=== PATIENT | male | born 1940 | race Two or more races ===

== ENCOUNTER → 2016-09-22 | Outpatient (CLI) | payer OTHER, MEDICAID ==
[~2016-09-22] MED LIST: ASPI81TA13 PO; BACL10TA PO; CAPT25TA76 PO; CHOL50006 PO; CHOLCAP4 PO; LOSA50TA26 PO; MELO-86 PO; METF-312 PO; METF-314 PO; OMEP20CA5 PO; PRED10PA PO; SIMV-8 PO
== END | disposition home or self-care (01) ==
LOC: Rad HDHVI 14:37
PROVIDERS: ATTEND Internal Medicine Cardiovascular Disease
DX: I11.0 Hypertensive heart disease with heart failure (principal); I34.0 Nonrheumatic mitral (valve) insufficiency; I34.2 Nonrheumatic mitral (valve) stenosis; I35.0 Nonrheumatic aortic (valve) stenosis; E78.00 Pure hypercholesterolemia, unspecified
CPT/HCPCS: 93306

== ENCOUNTER → 2016-10-21 | Outpatient (CLI) | payer OTHER, MEDICAID ==
[2016-10-21 09:35] VITALS: BP 126/84
[2016-10-21 10:05] VITALS: BP 133/73
[2016-10-21 12:15] LABS: Basophils # (auto) 0 uL; Basophils % (auto) 0.6 % (0.0-2.0); Eosinophils # (auto) 0.2 uL; Eosinophils % (auto) 2.1 % (0.0-7.0); Hematocrit 42.5 % (41.0-53.0); Lymphocytes # (auto) 1.7 uL; Lymphocytes % (auto) 23.1 % (10.0-50.0); Mean Corpuscular Hemoglobin 30.4 pg (28.0-32.0); Mean Platelet Volume 9.1 fL (7.4-10.4); Monocytes # (auto) 0.4 uL; Monocytes % (auto) 6.2 % (0.0-12.0); Neutrophils # (auto) 4.9 uL; Platelet Count (auto) 321 10^3/uL (140-450); Red Cell Distribution Width 12.6 % (11.6-16.0); White Blood Cell 7.2 10^3/uL (4.4-10.8)
[2016-10-21 12:46] LABS: Partial Thromboplastin Time 30.1 sec (22.64-33.71); Prothrombin Time 12.3 sec (9.37-12.3)
[2016-10-21 13:29] LABS: INR 1.19 (0.9-1.15)
[2016-10-21 13:40] LABS: Calcium 8.6 mg/dL (8.5-10.1); Potassium 4.3 mmol/L (3.5-5.1)
== END | disposition home or self-care (01) ==
LOC: Rad HDHVI 09:22
PROVIDERS: ATTEND Internal Medicine Cardiovascular Disease
DX: I10 Essential (primary) hypertension (principal); D64.9 Anemia, unspecified; R79.1 Abnormal coagulation profile; Z01.812 Encounter for preprocedural laboratory examination
CPT/HCPCS: 36415; 71020; 80048; 85025; 85610; 85730; 93005; G0463

== ENCOUNTER 2016-10-23 12:15 | Inpatient (IN) | payer OTHER, MEDICAID ==
[~2016-10-23] VITALS: Ht 172.7 cm; Wt 90.1 kg
[~2016-10-23 12:15] MED LIST changes: +IODIXANOL 320MG/ML 100ML BTL IV ONE; +LIDOCAINE 2%HCL (LOCAL ANESTH.) INJ 20ML MDV ONE
[2016-10-23] MEDS ORDERED: VANCOMYCIN HCL 1000 MG VL ONE (12:48)
[2016-10-23] MEDS ORDERED: VANCOMYCIN 1GM/250ML D5W 250 ML IV ONE (12:49)
[2016-10-23] MEDS ORDERED: ceFAZolin 1GM/50ML D5W 50 ML IV ONE (12:49)
[2016-10-23] MEDS ORDERED: fentaNYL CITRATE 100 MCG/2 ML VL ONE (12:59)
[2016-10-23] MEDS ORDERED: MIDAZOLAM HCL 1MG/1ML-2 ML VIAL ONE (12:59)
[2016-10-23] MEDS ORDERED: SODIUM CHL 0.9% 0 ML ONE (13:00)
[2016-10-23] MEDS ORDERED: ANGIOMAX 250 MG VIAL IV ONE (13:01)
[2016-10-23] MEDS ORDERED: FURO40TA4 PO (13:20)
[2016-10-23] MEDS ORDERED: SPIR25TA89 PO (13:20)
[2016-10-23] MEDS ORDERED: METF-316 PO (13:20)
[2016-10-23] MEDS ORDERED: IOHEXOL 350 MG/ML 100ML IJ ONE (14:09)
[2016-10-23] MEDS ORDERED: FUROSEMIDE 20 MG/2 ML VIAL ONE (14:49)
[2016-10-23] MEDS ORDERED: ACETAMINOPHEN 325 MG TAB PO PRN (15:45)
[2016-10-23] MEDS ORDERED: MORPHINE SULF INJ 2 MG/ML SYRINGE 1ML IV PRN (15:45)
[2016-10-23] MEDS ORDERED: NITROGLYCERIN 0.4 MG SL TAB SL PRN (15:45)
[2016-10-23] MEDS ORDERED: HYDROcodone-ACET 5/325MG TAB PO PRN (15:45)
[2016-10-23] MEDS: ceFAZolin 1GM/50ML D5W 50 ML IV SCH ×2 (16:44→21:49)
[2016-10-23] MEDS ORDERED: DEXTROSE (50%) 50ML SYRG IV PRN (16:45)
[2016-10-23 16:46] VITALS: BP 138/73
[2016-10-23] MEDS: ACCU-CHEK COMFORT CURVE STRIP VI SCH ×2 (17:00→21:50)
[2016-10-23] MEDS ORDERED: SPIRONOLACTONE 25 MG TAB PO ONE (17:00)
[2016-10-23] MEDS ORDERED: FUROSEMIDE 40 MG TAB PO ONE (17:00)
[2016-10-23] MEDS: InsuLIN REG 1unit/0.01ml Soln (100units/ml) SC SCH (17:44)
[2016-10-23 22:00] VITALS: BP 102/64
[2016-10-23] MEDS ORDERED: ATORVASTATIN 20 MG TAB PO SCH (22:00)
[2016-10-23] MEDS ORDERED: InsuLIN REG 1unit/0.01ml Soln (100units/ml) SC SCH (22:00)
[2016-10-24 04:55] VITALS: BP 112/68
[2016-10-24 05:51] LABS: Basophils # (auto) 0 uL; Basophils % (auto) 0.5 % (0.0-2.0); Eosinophils # (auto) 0.1 uL; Eosinophils % (auto) 1.4 % (0.0-7.0); Hematocrit 41.1 % (41.0-53.0); Hemoglobin 13.7 g/dL (13.5-17.5); Lymphocytes # (auto) 1.4 uL; Lymphocytes % (auto) 15.5 % (10.0-50.0); Mean Corpuscular Hemoglobin 30.6 pg (28.0-32.0); Mean Corpuscular Hgb Conc. 33.4 g/dL (32.0-36.0); Mean Corpuscular Volume 91.7 fL (80.0-100.0); Mean Platelet Volume 8.5 fL (7.4-10.4); Monocytes # (auto) 0.6 uL; Monocytes % (auto) 7.2 % (0.0-12.0); Neutrophils # (auto) 6.7 uL; Neutrophils % (auto) 75.4 % (37.0-80.0); Platelet Count (auto) 284 10^3/uL (140-450); Red Cell Distribution Width 12.7 % (11.6-16.0); White Blood Cell 8.8 10^3/uL (4.4-10.8)
[2016-10-24 06:03] LABS: BUN/Creatinine Ratio 19.3; Potassium 3.6 mmol/L (3.5-5.1)
[2016-10-24 06:04] LABS: Calcium 8.4 mg/dL (8.5-10.1)
[2016-10-24] MEDS: InsuLIN REG 1unit/0.01ml Soln (100units/ml) SC SCH ×2 (07:00→11:30)
[2016-10-24] MEDS: ACCU-CHEK COMFORT CURVE STRIP VI SCH ×2 (07:00→11:51)
[2016-10-24 08:23] VITALS: BP 123/79
[2016-10-24] MEDS ORDERED: SPIRONOLACTONE 25 MG TAB PO SCH (10:00)
[2016-10-24] MEDS ORDERED: CAPTOPRIL 25 MG TAB PO SCH (10:00)
[2016-10-24] MEDS ORDERED: FUROSEMIDE 40 MG TAB PO SCH (10:00)
[2016-10-24 12:24] VITALS: BP 116/70
== END 2016-10-24 13:00 | disposition home or self-care (01) | DRG 223 ==
LOC: CATH 12:15 → TELE-CENTR 12:16
PROVIDERS: ADMIT Internal Medicine Cardiovascular Disease; ATTEND Internal Medicine Cardiovascular Disease
PROC: 0JH609Z Insertion of Cardiac Resynchronization Defibrillator Pulse Generator into Chest Subcutaneous Tissue and Fascia, Open Approach (ICD-10-PCS; principal; 2016-10-23)
PROC: 02HK3KZ Insertion of Defibrillator Lead into Right Ventricle, Percutaneous Approach (ICD-10-PCS; 2016-10-23)
PROC: B2151ZZ Fluoroscopy of Left Heart using Low Osmolar Contrast (ICD-10-PCS; 2016-10-23)
PROC: 02HL3KZ Insertion of Defibrillator Lead into Left Ventricle, Percutaneous Approach (ICD-10-PCS; 2016-10-23)
PROC: 02H63KZ Insertion of Defibrillator Lead into Right Atrium, Percutaneous Approach (ICD-10-PCS; 2016-10-23)
PROC: 057Y3ZZ Dilation of Upper Vein, Percutaneous Approach (ICD-10-PCS; 2016-10-23)
PROC: B2111ZZ Fluoroscopy of Multiple Coronary Arteries using Low Osmolar Contrast (ICD-10-PCS; 2016-10-23)
PROC: 4A023N7 Measurement of Cardiac Sampling and Pressure, Left Heart, Percutaneous Approach (ICD-10-PCS; 2016-10-23)
PROC: B41J1ZZ Fluoroscopy of Other Lower Arteries using Low Osmolar Contrast (ICD-10-PCS; 2016-10-23)
DX: I11.0 Hypertensive heart disease with heart failure (principal); I42.0 Dilated cardiomyopathy; I50.20 Unspecified systolic (congestive) heart failure; I44.7 Left bundle-branch block, unspecified; E11.9 Type 2 diabetes mellitus without complications
CPT/HCPCS: 33249; 36415; 37248; 71010; 80048; 82962; 85025; 93458; J0690; J1815; J2250; Q9967

== ENCOUNTER → 2016-12-15 | Outpatient (CLI) | payer OTHER, MEDICAID ==
[~2016-12-15] MED LIST changes: -ASPI81TA13 PO; -BACL10TA PO; -CHOL50006 PO; -CHOLCAP4 PO; +FURO40TA4 PO; -IODIXANOL 320MG/ML 100ML BTL IV ONE; -LIDOCAINE 2%HCL (LOCAL ANESTH.) INJ 20ML MDV ONE; -LOSA50TA26 PO; -MELO-86 PO; -METF-312 PO; -METF-314 PO; +METF-316 PO; -OMEP20CA5 PO; -PRED10PA PO; +SPIR25TA89 PO
== END | disposition home or self-care (01) ==
LOC: Rad HDHVI 12:14
PROVIDERS: ATTEND Internal Medicine Cardiovascular Disease
DX: I07.1 Rheumatic tricuspid insufficiency (principal); I35.8 Other nonrheumatic aortic valve disorders; R53.81 Other malaise
CPT/HCPCS: 93306

== ENCOUNTER → 2017-09-07 | Outpatient (CLI) | payer OTHER, MEDICAID ==
[~2017-09-07] MED LIST changes: +CAPT25TA5 PO; -CAPT25TA76 PO; -METF-316 PO; +METF-372 PO
== END | disposition home or self-care (01) ==
LOC: Rad HDHVI 08:58
PROVIDERS: ATTEND Internal Medicine
DX: I25.10 Atherosclerotic heart disease of native coronary artery without angina pectoris (principal); D16.8 Benign neoplasm of pelvic bones, sacrum and coccyx; I10 Essential (primary) hypertension
CPT/HCPCS: 76770

== ENCOUNTER → 2018-12-23 | Outpatient (CLI) | payer OTHER, MEDICAID ==
[~2018-12-23] MED LIST changes: +SPIR25TA8 PO; -SPIR25TA89 PO
== END | disposition home or self-care (01) ==
LOC: Rad HDHVI 08:10
PROVIDERS: ATTEND Internal Medicine
DX: I25.10 Atherosclerotic heart disease of native coronary artery without angina pectoris (principal); I70.0 Atherosclerosis of aorta; I11.0 Hypertensive heart disease with heart failure; I50.20 Unspecified systolic (congestive) heart failure; J98.11 Atelectasis; I48.91 Unspecified atrial fibrillation
CPT/HCPCS: 71046; 93306

== ENCOUNTER → 2020-02-13 | Outpatient (CLI) | payer OTHER, MEDICAID | END | disposition home or self-care (01) | LOC: Rad HDHVI 13:11 | PROVIDERS: ATTEND Internal Medicine | DX: I51.7 Cardiomegaly (principal); I42.9 Cardiomyopathy, unspecified; E11.9 Type 2 diabetes mellitus without complications; E78.5 Hyperlipidemia, unspecified | CPT/HCPCS: 93306 ==

== ENCOUNTER → 2021-03-06 | Outpatient (CLI) | payer OTHER, MEDICAID | END | disposition home or self-care (01) | LOC: Rad HDHVI 13:43 | PROVIDERS: ATTEND Internal Medicine | DX: I08.3 Combined rheumatic disorders of mitral, aortic and tricuspid valves (principal); I11.0 Hypertensive heart disease with heart failure; I50.9 Heart failure, unspecified | CPT/HCPCS: 93306 ==

== ENCOUNTER → 2023-01-20 | Outpatient (CLI) | payer OTHER ==
[~2023-01-20] MED LIST changes: -SIMV-8 PO; +SIMV20TA20 PO
== END | disposition home or self-care (01) ==
LOC: Rad HDHVI 15:06
PROVIDERS: ATTEND Internal Medicine Cardiovascular Disease
DX: I11.9 Hypertensive heart disease without heart failure (principal); I35.8 Other nonrheumatic aortic valve disorders; E78.5 Hyperlipidemia, unspecified
CPT/HCPCS: 93306

== ENCOUNTER → 2023-12-23 | Day surgery (SDC) | payer OTHER, MEDICAID ==
[2023-12-22 14:27] LABS: Basophils # (auto) 0.1 10 ^3/uL (0-0.2); Basophils % (auto) 1.2 % (0.0-2.0); Eosinophils # (auto) 0.1 10 ^3/uL (0-0.8); Eosinophils % (auto) 2.1 % (0.0-7.0); Hematocrit 47.4 % (41.0-53.0); Hemoglobin 15.5 g/dL (13.5-17.5); Lymphocytes # (auto) 1.8 10 ^3/uL (0.4-5.4); Lymphocytes % (auto) 27.6 % (10.0-50.0); Mean Corpuscular Hgb Conc. 32.8 g/dL (32.0-36.0); Mean Corpuscular Volume 91.6 fL (80.0-100.0); Monocytes # (auto) 0.6 10 ^3/uL (0-1.3); Monocytes % (auto) 8.6 % (0.0-12.0); Neutrophils % (auto) 60.5 % (37.0-80.0); Nucleated Red Blood Cells % 0.1 %; Red Blood Cells 5.17 10^6/uL (4.5-5.90); Red Cell Distribution Width 13.5 % (11.8-14.3); White Blood Cell 6.6 10^3/uL (4.4-10.8)
[2023-12-22 14:44] LABS: INR 1.22 (0.9-1.15); Partial Thromboplastin Time 29.4 SEC (24.5-34.5); Prothrombin Time 12.7 sec (9.3-11.8)
[2023-12-22 15:09] LABS: Chloride 105 mmol/L (98-107); Potassium 4.4 mmol/L (3.5-5.1); Sodium 139 mmol/L (136-145)
[2023-12-22 15:10] LABS: Anion Gap 4 (5-15); Carbon Dioxide 30 mmol/L (20-30)
[2023-12-22 15:11] LABS: Calcium 9.6 mg/dL (8.5-10.1)
[2023-12-22 15:15] LABS: BUN/Creatinine Ratio 11.6 (10.0-20.0); Blood Urea Nitrogen 10 mg/dL (9-23); Glucose 109 mg/dL (74-106)
[2023-12-23] VITALS (7 sets, daily range): BP systolic 113–143; BP diastolic 75–96; PULSE 75–83; RESP 14–18; O2SAT 92–94
[~2023-12-23] VITALS: Ht 167.6 cm; Wt 96.2 kg
[~2023-12-23] MED LIST changes: +ASPI-543 PO; -CAPT25TA5 PO; +CARV6.2551 PO; +DAPA1TAB4 PO; +LIDOCAINE 2%HCL (LOCAL ANESTH.) INJ 20ML MDV ONE; +MIDAZOLAM HCL 2MG/2ML 2ml VIAL (1mg/ml) ONE; +SACU1TAB PO; -SPIR25TA8 PO; +TAMS0.4C36 PO; +VANCOMYCIN 1GM/200ML 200 ML IV ONE; +VANCOMYCIN HCL 1000 MG VL ONE; +VERI2.5T PO; +fentaNYL CITRATE 100 MCG/2 ML VL ONE
== END | disposition home or self-care (01) ==
LOC: CATH 08:08
PROVIDERS: ATTEND Internal Medicine Cardiovascular Disease
DX: T82.110A Breakdown (mechanical) of cardiac electrode, initial encounter (principal); I25.5 Ischemic cardiomyopathy; I11.0 Hypertensive heart disease with heart failure; I50.21 Acute systolic (congestive) heart failure
CPT/HCPCS: 33264; 36415; 80048; 85025; 85610; 85730; C1882; J2250; J3010; J3370; 33249; 33263; 99152